=== PATIENT | female | born 1985 | race Caucasian/White ===

== ENCOUNTER 2017-02-01 22:29 | Emergency (ER) | payer BC ==
[2017-02-01] MEDS ORDERED: methylPREDNISolone Sodium Succinate 125 MG/2 ML SDV IM ONE (22:44)
[2017-02-01 22:45] VITALS: BP 144/98
--- NOTE | 2017-02-01 23:16 | EDM.PDOC ---
[id number]: allergic reaction Time Seen by Provider: 02/01/17 22:45 Source of Information: Reports: Patient, Family History Limitations: Reports: No Limitations - History of Present Illness INITIAL COMMENTS - FREE TEXT/NARRATIVE: 31-year-old female who is allergic to several medications and environmental allergies over the past hour and a half to 2 hours feels her throat is scratchy and swollen and she's having trouble breathing. She also feels she's itching all over. She was exposed to some water filter cleaner chemicals earlier this evening. She took 4 Benadryl within the last hour. Severity: Mild Associated Symptoms: Reports: Shortness of Breath. Denies: Cough, Fever/Chills , Headaches, Nausea/Vomiting - Related Data Allergies Allergy/AdvReac Type Severity Reaction Status Date / Time codeine Allergy Cannot Verified 02/01/17 22:46 Remember hydrocodone [Hydrocodone] Allergy Itching Verified 02/01/17 22:46 Iodinated Contrast- Oral and Allergy Hives Verified 02/01/17 22:46 IV Dye [Iodinated Contrast Media - IV Dye] iodine Allergy Hives Verified 02/01/17 22:46 metoclopramide HCl Allergy Itching Verified 02/01/17 22:46 [From Reglan] povidone-iodine Allergy Hives Verified 02/01/17 22:46 [From Betadine] promethazine HCl Allergy Itching Verified 02/01/17 22:46 [From Phenergan] shellfish derived Allergy Hives Verified 02/01/17 22:46 soap [From Betadine] Allergy Hives Verified 02/01/17 22:46 acetaminophen AdvReac Liver Verified 02/01/17 22:46 Problems azithromycin AdvReac Liver Verified 02/01/17 22:46 [From Zithromax Z-Bulmaro] Problems droperidol [From Inapsine] AdvReac Confusion Verified 02/01/17 22:46 prochlorperazine edisylate AdvReac Confusion Verified 02/01/17 22:46 [From Compazine] prochlorperazine maleate AdvReac Confusion Verified 02/01/17 22:46 [From Compazine] Home Meds: Home Meds Multivitamin [Multi-Vitamin Daily] 1 each PO BEDTIME 08/03/15 [History] ALPRAZolam [Alprazolam] 1 mg PO ASDIRECTED PRN 02/01/17 [History] Prazosin HCl [Prazosin] 2 mg PO BEDTIME 02/01/17 [History] busPIRone HCl [busPIRone] 30 mg PO BID 02/01/17 [History] traZODone HCl [Trazodone HCl] 50 mg PO BEDTIME 02/01/17 [History] Past Medical History Gastrointestinal History: Reports: Cholelithiasis Neurological History: Reports: Migraines Psychiatric History: Reports: Anxiety, Depression Endocrine/Metabolic History: Reports: Obesity/BMI 30+ - Past Surgical History HEENT Surgical History: Reports: Tonsillectomy GI Surgical History: Reports: Cholecystectomy, David Fundoplication Musculoskeletal Surgical History: Reports: Other (See Below) Other Musculoskeletal Surgeries/Procedures:: right hip Social & Family History - Tobacco Use Smoking Status *Q: Never Smoker Second Hand Smoke Exposure: No - Caffeine Use Caffeine Use: Reports: Soda - Alcohol Use Days Per Week of Alcohol Use: 0 - Recreational Drug Use Recreational Drug Use: No ED ROS ALLERGIC REACTION - Review of Systems Review Of Systems: See Below Constitutional: Denies: Fever, Chills HEENT: Reports: Throat Swelling Respiratory: Reports: Shortness of Breath. Denies: Cough Cardiovascular: Denies: Chest Pain GI/Abdominal: Denies: Abdominal Pain Musculoskeletal: Reports: No Symptoms Skin: Reports: Pruritis. Denies: Rash Neurological: Reports: No Symptoms ED EXAM GENERAL NO PERIP PULSE - Physical Exam Exam: See Below Exam Limited By: No Limitations General Appearance: Alert, No Apparent Distress Eye Exam: Bilateral Eye: Normal Inspection Throat/Mouth: Normal Inspection Respiratory/Chest: No Respiratory Distress, Lungs Clear Neurological: Alert, Oriented Psychiatric: Normal Affect, Normal Mood Skin Exam: Warm, Dry, No Rash Course - Vital Signs Last Recorded V/S: Last Vital Signs Temp 98.4 F 02/01/17 22:38 Pulse 85 02/01/17 22:38 Resp 16 02/01/17 22:38 BP 144/98 H 02/01/17 22:38 Pulse Ox 98 02/01/17 22:38 - Orders/Labs/Meds Meds: Medications Discontinued Medications Generic Name Dose Route Start Last Admin Trade Name Freq PRN Reason Stop Dose Admin Methylprednisolone Sodium Succinate 125 mg 02/01/17 22:44 02/01/17 22:54 Solu-Medrol IM 02/01/17 22:45 125 mg ONETIME ONE Administration - Re-Assessments/Exams Free Text/Narrative Re-Assessment/Exam: 02/01/17 23:13 Explained to the patient that I see no physical findings of an allergic reaction. Her tonsils are gone, there is no mucosal erythema or swelling, her lungs are clear and her O2 sats are 97-98%. Despite the itchy skin she has no rash. She was given 125 mg of Solu-Medrol IM and observed for half hour and developed no further symptoms. 02/01/17 23:15 Primary to discharge the patient started talking normally and said the itching had "stopped". Departure - Departure Time of Disposition: 23:42 Disposition: Home, Self-Care 01 Condition: Good Clinical Impression: Allergic reaction Qualifiers: Encounter type: initial encounter Qualified Code(s): T78.40XA - Allergy, unspecified, initial encounter - Discharge Information Instructions: Allergies Referrals: Annabella Fofana PA [Primary Care Provider] - Forms: ED Department Discharge Care Plan Goals: Rest tonight, repeat Benadryl as necessary and return if worsening or concerns.
== END 2017-02-01 23:42 | disposition home or self-care (01) ==
LOC: JP.ED 22:29
DX: T78.40XA Allergy, unspecified, initial encounter (principal); R22.1 Localized swelling, mass and lump, neck; R06.02 Shortness of breath; F41.9 Anxiety disorder, unspecified; F32.9 Major depressive disorder, single episode, unspecified; E66.9 Obesity, unspecified; Z88.1 Allergy status to other antibiotic agents; Z88.5 Allergy status to narcotic agent; Z88.8 Allergy status to other drugs, medicaments and biological substances; Z91.041 Radiographic dye allergy status; Z91.013 Allergy to seafood; Z91.048 Other nonmedicinal substance allergy status; Z90.49 Acquired absence of other specified parts of digestive tract; Z98.890 Other specified postprocedural states
CPT/HCPCS: 96372; 99285; J2930

== ENCOUNTER 2017-04-10 18:05 | Emergency (ER) | payer BC ==
[2017-04-10 18:16] VITALS: BP 149/98
--- NOTE | 2017-04-10 18:51 | EDM.PDOC ---
ED HPI GENERAL MEDICAL PROBLEM - General Chief Complaint: [employer] Problem Stated Complaint: 4 WEEKS PG - SPOTTING Time Seen by Provider: 04/10/17 18:40 Source of Information: Reports: Patient History Limitations: Reports: No Limitations - History of Present Illness INITIAL COMMENTS - FREE TEXT/NARRATIVE: 31-year-old female with a very early , she thinks she is around 4 weeks gestation had some spotting today and some slight cramping. She went to the clinic and they sent her to the emergency room. She is very stable and not actively bleeding at this time. Onset: Today Severity: Mild Middle Abdomen Pain Score (Numeric/FACES): 3 - Related Data Allergies Allergy/AdvReac Type Severity Reaction Status Date / Time codeine Allergy Cannot Verified 02/01/17 22:46 Remember hydrocodone [Hydrocodone] Allergy Itching Verified 02/01/17 22:46 Iodinated Contrast- Oral and Allergy Hives Verified 02/01/17 22:46 IV Dye [Iodinated Contrast Media - IV Dye] iodine Allergy Hives Verified 04/10/17 18:22 metoclopramide HCl Allergy Itching Verified 04/10/17 18:22 [From Reglan] povidone-iodine Allergy Hives Verified 04/10/17 18:22 [From Betadine] promethazine HCl Allergy Itching Verified 04/10/17 18:22 [From Phenergan] shellfish derived Allergy Hives Verified 04/10/17 18:22 soap [From Betadine] Allergy Hives Verified 04/10/17 18:22 acetaminophen AdvReac Liver Verified 04/10/17 18:22 Problems azithromycin AdvReac Liver Verified 04/10/17 18:22 [From Zithromax Z-Bulmaro] Problems droperidol [From Inapsine] AdvReac Confusion Verified 04/10/17 18:22 prochlorperazine edisylate AdvReac Confusion Verified 04/10/17 18:22 [From Compazine] prochlorperazine maleate AdvReac Confusion Verified 02/01/17 22:46 [From Compazine] Home Meds: Home Meds Multivitamin [Multi-Vitamin Daily] 1 each PO BEDTIME 08/03/15 [History] ALPRAZolam [Alprazolam] 1 mg PO ASDIRECTED PRN 02/01/17 [History] Prazosin HCl [Prazosin] 2 mg PO BEDTIME 02/01/17 [History] busPIRone HCl [busPIRone] 30 mg PO BID 02/01/17 [History] traZODone HCl [Trazodone HCl] 50 mg PO BEDTIME 02/01/17 [History] Past Medical History Gastrointestinal History: Reports: Cholelithiasis [employer] History: Reports: , Spontaneous Neurological History: Reports: Migraines Psychiatric History: Reports: Anxiety, Depression Endocrine/Metabolic History: Reports: Obesity/BMI 30+ - Past Surgical History HEENT Surgical History: Reports: Tonsillectomy GI Surgical History: Reports: Cholecystectomy, David Fundoplication Musculoskeletal Surgical History: Reports: Other (See Below) Other Musculoskeletal Surgeries/Procedures:: right hip Social & Family History - Tobacco Use Smoking Status *Q: Never Smoker Second Hand Smoke Exposure: No - Caffeine Use Caffeine Use: Reports: Soda Other Caffeine Use: 1 can - Alcohol Use Days Per Week of Alcohol Use: 0 - Recreational Drug Use Recreational Drug Use: No ED ROS GENERAL - Review of Systems Review Of Systems: See Below Constitutional: Denies: Fever, Chills Respiratory: Reports: No Symptoms GI/Abdominal: Reports: Nausea (She always has nausea in her earlier pregnancies) Skin: Reports: No Symptoms ED EXAM - Physical Exam Exam: See Below Exam Limited By: No Limitations General Appearance: Alert, No Apparent Distress Respiratory/Chest: No Respiratory Distress Cardiovascular: Regular Rate, Rhythm GI/Abdominal Exam: Soft, Non-Tender Course - Vital Signs Last Recorded V/S: Last Vital Signs Temp 97.7 F 04/10/17 18:15 Pulse 108 H 04/10/17 18:15 Resp 16 04/10/17 18:15 BP 149/98 H 04/10/17 18:15 Pulse Ox 98 04/10/17 18:15 - Orders/Labs/Meds Labs: Laboratory Tests 04/10/17 04/10/17 Range/Units 18:48 18:48 WBC 12.3 H (4.5-11.0) K/uL RBC 4.79 (3.30-5.50) M/uL Hgb 12.3 D (12.0-15.0) g/dL Hct 37.8 (36.0-48.0) % MCV 79 L (80-98) fL MCH 26 L (27-31) pg MCHC 33 (32-36) % Plt Count 413 H (150-400) K/uL Neut % (Auto) 76 H (36-66) % Lymph % (Auto) 17 L (24-44) % [place] % (Auto) 6 (2-6) % Eos % (Auto) 2 (2-4) % Baso % (Auto) 0 (0-1) % HCG, Quant 617 H (0-6) mIU/mL - Re-Assessments/Exams Free Text/Narrative Re-Assessment/Exam: 04/10/17 18:50 Explained to the patient she so early that an exam really isn't necessary, we will draw a quantitative beta hCG and CBC which can be repeated in 48 hours. 04/10/17 19:28 Hemoglobin returned normal, quantitative hCG was only 617. I would expect it to be higher, but it still may be worthwhile rechecking in 2 days. If she develops increased bleeding and cramping I would expect she could treat this conservatively as a miscarriage. Departure - Departure Time of Disposition: 19:38 Disposition: Home, Self-Care 01 Condition: Good Clinical Impression: Threatened - Discharge Information Instructions: Threatened Miscarriage Referrals: Annabella Fofana PA [Primary Care Provider] - Forms: ED Department Discharge Care Plan Goals: Rest and fluids the next several days, return in 48 hours for repeat exam of your beta hCG level unless bleeding and cramping becomes heavier, then it would be reasonable to just treat symptoms as needed.
== END 2017-04-10 19:38 | disposition home or self-care (01) ==
LOC: JP.ED 18:05
DX: O20.0 Threatened abortion (principal); Z79.899 Other long term (current) drug therapy; Z88.1 Allergy status to other antibiotic agents; Z91.013 Allergy to seafood; Z88.5 Allergy status to narcotic agent; Z91.041 Radiographic dye allergy status; Z91.09 Other allergy status, other than to drugs and biological substances
CPT/HCPCS: 36415; 84702; 85025; 99284

== ENCOUNTER 2017-08-03 16:39 | Observation (INO) | payer BC, OTHER ==
[2017-08-03] MEDS ORDERED: Sodium Chloride 0.9% 1,000 ML IV SCH ×2 (16:45→19:45)
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
[2017-08-03] MEDS ORDERED: Bacitracin Oint 1 GM U/D Packet TOP ONE (18:19)
[2017-08-03] MEDS ORDERED: hydrOXYzine HCl 25 MG Tab PO ONE (19:54)
[2017-08-03 20:48] VITALS: BP 129/79
--- NOTE | 2017-08-06 10:20 | CR ---
Left forearm The radius and ulna demonstrate normal alignment. There are no findings of fracture. The soft tissues are unremarkable. Impression: 1. Negative exam.
== END 2017-08-03 21:10 | disposition home or self-care (01) ==
LOC: JP.ED 16:39 → JP.OB 18:16
PROVIDERS: ADMIT Advanced Practice Midwife; ATTEND Advanced Practice Midwife
DX: O9A.212 Injury, poisoning and certain other consequences of external causes complicating pregnancy, second trimester (principal); S40.812A Abrasion of left upper arm, initial encounter; E66.9 Obesity, unspecified; O99.212 Obesity complicating pregnancy, second trimester; V89.2XXA Person injured in unspecified motor-vehicle accident, traffic, initial encounter; Z3A.21 21 weeks gestation of pregnancy; Z88.5 Allergy status to narcotic agent; Z91.041 Radiographic dye allergy status; Z88.8 Allergy status to other drugs, medicaments and biological substances; Z91.09 Other allergy status, other than to drugs and biological substances; Z91.013 Allergy to seafood; Z88.1 Allergy status to other antibiotic agents; Z88.6 Allergy status to analgesic agent; Z68.30 Body mass index [BMI] 30.0-30.9, adult; Z90.89 Acquired absence of other organs; Z98.890 Other specified postprocedural states
CPT/HCPCS: 36415; 73090; 76815; 80053; 81001; 85025; 99211; 99285; A9270; J1642; J7040

== ENCOUNTER 2017-11-30 21:59 | Emergency (ER) | payer BC ==
[2017-11-30 23:08] VITALS: BP 153/102
[2017-11-30] MEDS ORDERED: oxyCODONE 5 MG Tab PO ONE (23:21)
--- NOTE | 2017-11-30 23:25 | EDM.PDOC ---
ED HPI GENERAL MEDICAL PROBLEM - General Chief Complaint: ENT Problem Stated Complaint: THROAT INFECTION/DEHYDRATED Time Seen by Provider: 11/30/17 23:15 Source of Information: Reports: Patient History Limitations: Reports: No Limitations - History of Present Illness INITIAL COMMENTS - FREE TEXT/NARRATIVE: Melany a 32-year-old female, G4 para 3003 who presents to the emergency department today with complaints of dehydration. Patient has issues with hyperemesis, she is 38 weeks , she has a PICC line in her right arm. Patient was seen in the clinic earlier today with a throat infection, she tested negative for strep has large amounts exudates and canker sores in the back of her throat, she was started on Amoxicillin. Patient has been taking Tylenol for pain with minimal relief in her symptoms. throat Pain Score (Numeric/FACES): 10 - Related Data Allergies Allergy/AdvReac Type Severity Reaction Status Date / Time codeine Allergy Cannot Verified 12/01/17 00:31 Remember hydrocodone [Hydrocodone] Allergy Itching Verified 12/01/17 00:31 Iodinated Contrast- Oral and Allergy Hives Verified 12/01/17 00:31 IV Dye [Iodinated Contrast Media - IV Dye] iodine Allergy Hives Verified 12/01/17 00:31 metoclopramide HCl Allergy Itching Verified 12/01/17 00:31 [From Reglan] povidone-iodine Allergy Hives Verified 12/01/17 00:31 [From Betadine] promethazine HCl Allergy Itching Verified 12/01/17 00:31 [From Phenergan] shellfish derived Allergy Hives Verified 12/01/17 00:31 soap [From Betadine] Allergy Hives Verified 12/01/17 00:31 acetaminophen AdvReac Liver Verified 12/01/17 00:31 Problems azithromycin AdvReac Liver Verified 12/01/17 00:31 [From Zithromax Z-Bulmaro] Problems droperidol [From Inapsine] AdvReac Confusion Verified 12/01/17 00:31 prochlorperazine edisylate AdvReac Confusion Verified 12/01/17 00:31 [From Compazine] prochlorperazine maleate AdvReac Confusion Verified 12/01/17 00:31 [From Compazine] Home Meds: Home Meds Multivitamin [Multi-Vitamin Daily] 1 each PO BEDTIME 08/03/15 [History] Ondansetron [Ondansetron ODT] 8 mg PO Q8H PRN 08/03/17 [History] Past Medical History Gastrointestinal History: Reports: Cholelithiasis [employer] History: Reports: , Spontaneous Neurological History: Reports: Migraines Psychiatric History: Reports: Anxiety, Depression Endocrine/Metabolic History: Reports: Obesity/BMI 30+ - Past Surgical History HEENT Surgical History: Reports: Tonsillectomy GI Surgical History: Reports: Cholecystectomy, David Fundoplication Musculoskeletal Surgical History: Reports: Other (See Below) Other Musculoskeletal Surgeries/Procedures:: right hip Social & Family History - Caffeine Use Caffeine Use: Reports: Soda Other Caffeine Use: 1 can ED ROS ENT - Review of Systems Review Of Systems: ROS reveals no pertinent complaints other than HPI. ED EXAM, ENT - Physical Exam Exam: See Below Exam Limited By: No Limitations General Appearance: Alert, WD/WN, No Apparent Distress Mouth/Throat: Tonsillar Exudates, Tonsillar Swelling, Other (I well but it is probably not beLarge amounts of exudative tonsillar pillars and uvula.). No: Tongue Swelling, Trismus, Uvular Deviation, Uvular Edema Head: Atraumatic Neck: Normal Inspection, Supple. No: Lymphadenopathy (R), Lymphadenopathy (L) Respiratory/Chest: No Respiratory Distress, Lungs Clear Cardiovascular: Regular Rate, Rhythm GI/Abdominal: Normal Bowel Sounds, Soft, Non-Tender Extremities: Normal Inspection Skin: Warm, Dry, Intact Course - Vital Signs Last Recorded V/S: Last Vital Signs Temp 36.9 C 12/01/17 00:47 Pulse 121 H 12/01/17 00:47 Resp 16 12/01/17 00:47 BP 153/102 H 12/01/17 00:47 Pulse Ox 98 12/01/17 00:47 Lauren is a 32-year-old female, 3 weeks , G4 para 3003 who presents to the emergent for dehydration secondary to her sore throat was evaluated earlier today in clinic. Please refer to history of present illness and focused exam. Patient arrives here hypertensive and tachycardic but is otherwise hemodynamically stable. I did discuss with patient pain control for her sore throat, she did agree to oxycodone, one dose, she was given a liter of normal saline here as well as IV Zofran. Patient reports she is feeling a little lightheaded from the oxycodone but is otherwise feeling better and her pain has improved. At this time I feel patient is stable to be discharged home with ongoing supportive care. Patient was encouraged to take Tylenol as needed, amoxicillin as prescribed. Follow up as scheduled. Patient agreeable and discharged in stable condition. Heart rate and blood pressure improved to 110 and 140/80 - Orders/Labs/Meds Orders: Active Orders 24 hr Category Date Time Status Heparin Sodium [Heparin Lock Flush 100 Units/ML] Med 12/01/17 01:23 Active 500 units FLUSH ASDIRECTED PRN Sodium Chloride 0.9% [Normal Saline] 1,000 ml Med 11/30/17 23:30 Active IV ASDIRECTED Medication Orders Heparin Sodium (Porcine) (Heparin Lock Flush 100 Units/Ml) 500 units FLUSH ASDIRECTED PRN PRN Reason: Other Sodium Chloride (Normal Saline) 1,000 mls @ 999 mls/hr IV ASDIRECTED BALTA Last Admin: 12/01/17 00:36 Dose: 999 mls/hr Meds: Medications Generic Name Dose Route Start Last Admin Trade Name Freq PRN Reason Stop Dose Admin Heparin Sodium (Porcine) 500 units 12/01/17 01:23 Heparin Lock Flush 100 Units/Ml FLUSH ASDIRECTED PRN Other Sodium Chloride 1,000 mls @ 999 mls/hr 11/30/17 23:30 12/01/17 00:36 Normal Saline IV 999 mls/hr ASDIRECTED BALTA Administration Discontinued Medications Generic Name Dose Route Start Last Admin Trade Name Freq PRN Reason Stop Dose Admin Ondansetron HCl 4 mg 12/01/17 00:17 12/01/17 00:36 Zofran IVPUSH 12/01/17 00:18 4 mg ONETIME ONE Administration Oxycodone HCl 10 mg 11/30/17 23:21 12/01/17 00:39 Oxycodone PO 11/30/17 23:22 10 mg ONETIME ONE Administration Departure - Departure Time of Disposition: 02:00 Disposition: Home, Self-Care 01 Condition: Good Clinical Impression: Acute sore throat, Dehydration during - Discharge Information Referrals: Annabella Fofana PA [Primary Care Provider] - Forms: ED Department Discharge Additional Instructions: Take Amoxicillin as prescribed. Tylenol as needed for pain. Follow up with primary care as scheduled. - My Orders Last 24 Hours: My Active Orders 11/30/17 23:30 Sodium Chloride 0.9% [Normal Saline] 1,000 ml IV ASDIRECTED 12/01/17 01:23 Heparin Sodium [Heparin Lock Flush 100 Units/ML] 500 units FLUSH ASDIRECTED PRN - Assessment/Plan Last 24 Hours: My Active Orders 11/30/17 23:30 Sodium Chloride 0.9% [Normal Saline] 1,000 ml IV ASDIRECTED 12/01/17 01:23 Heparin Sodium [Heparin Lock Flush 100 Units/ML] 500 units FLUSH ASDIRECTED PRN
[2017-11-30] MEDS ORDERED: Sodium Chloride 0.9% 1,000 ML IV SCH (23:30)
[2017-12-01] MEDS ORDERED: Ondansetron 4 MG/2 ML SDV IVPUSH ONE (00:17)
== END 2017-12-01 01:49 | disposition home or self-care (01) ==
LOC: JP.ED 21:59
DX: O99.283 Endocrine, nutritional and metabolic diseases complicating pregnancy, third trimester (principal); E86.0 Dehydration; O99.513 Diseases of the respiratory system complicating pregnancy, third trimester; J02.9 Acute pharyngitis, unspecified; O99.343 Other mental disorders complicating pregnancy, third trimester; F41.9 Anxiety disorder, unspecified; F32.9 Major depressive disorder, single episode, unspecified; Z3A.38 38 weeks gestation of pregnancy; Z88.5 Allergy status to narcotic agent; Z91.041 Radiographic dye allergy status; Z79.899 Other long term (current) drug therapy
CPT/HCPCS: 96361; 96374; 99283; A9270; J1642; J2405; J7030

== ENCOUNTER 2017-12-06 20:20 | Inpatient (IN) | payer BC ==
[2017-12-06] MEDS ORDERED: Ampicillin 2 GM in Sodium Chloride 0.9% 100 ML IV ONE (20:44)
[2017-12-06] MEDS ORDERED: Sodium Chloride 0.9% 1,000 ML IV SCH (20:45)
[2017-12-06] MEDS ORDERED: Sodium Chloride 0.9% 10 ML Syringe FLUSH PRN (21:49)
--- NOTE | 2017-12-06 21:57 | PCM.LDHP ---
L&D History of Present Illness - General Date of Service: 12/06/17 Admit Problem/Dx: Patient Status Order with Admit Dx/Problem 12/06/17 20:50 Patient Status [ADT] Routine Admission Diagnosis/Problem Admission Diagnosis/Problem - Related Data Allergies/Adverse Reactions: Allergies Allergy/AdvReac Type Severity Reaction Status Date / Time codeine Allergy Cannot Verified 12/06/17 20:44 Remember hydrocodone [Hydrocodone] Allergy Itching Verified 12/06/17 20:44 Iodinated Contrast- Oral and Allergy Hives Verified 12/06/17 20:44 IV Dye [Iodinated Contrast Media - IV Dye] iodine Allergy Hives Verified 12/06/17 20:44 metoclopramide HCl Allergy Itching Verified 12/06/17 20:44 [From Reglan] povidone-iodine Allergy Hives Verified 12/06/17 20:44 [From Betadine] promethazine HCl Allergy Itching Verified 12/06/17 20:44 [From Phenergan] shellfish derived Allergy Hives Verified 12/06/17 20:44 soap [From Betadine] Allergy Hives Verified 12/06/17 20:44 acetaminophen AdvReac Liver Verified 12/06/17 20:44 Problems azithromycin AdvReac Liver Verified 12/06/17 20:44 [From Zithromax Z-Bulmaro] Problems droperidol [From Inapsine] AdvReac Confusion Verified 12/06/17 20:44 prochlorperazine edisylate AdvReac Confusion Verified 12/06/17 20:44 [From Compazine] prochlorperazine maleate AdvReac Confusion Verified 12/06/17 20:44 [From Compazine] Home Medications: Home Meds Multivitamin [Multi-Vitamin Daily] 1 each PO BEDTIME 08/03/15 [History] Ondansetron [Ondansetron ODT] 8 mg PO Q8H PRN 08/03/17 [History] Past Medical History Gastrointestinal History: Reports: Cholelithiasis Genitourinary History: Reports: Renal Calculus [employer] History: Reports: , Spontaneous Neurological History: Reports: Migraines Psychiatric History: Reports: Anxiety, Depression Endocrine/Metabolic History: Reports: Obesity/BMI 30+ - Infectious Disease History Infectious Disease History: Reports: Chicken Pox - Past Surgical History HEENT Surgical History: Reports: Tonsillectomy GI Surgical History: Reports: Cholecystectomy, David Fundoplication Musculoskeletal Surgical History: Reports: Other (See Below) Other Musculoskeletal Surgeries/Procedures:: right hip Social & Family History - Caffeine Use Caffeine Use: Reports: Soda Other Caffeine Use: 1 can H&P Review of Systems - Review of Systems: Review Of Systems: See Below General: Reports: No Symptoms HEENT: Reports: No Symptoms Pulmonary: Reports: No Symptoms Cardiovascular: Reports: No Symptoms Gastrointestinal: Reports: No Symptoms Genitourinary: Reports: No Symptoms Musculoskeletal: Reports: No Symptoms Skin: Reports: No Symptoms Psychiatric: Reports: No Symptoms Neurological: Reports: No Symptoms Hematologic/Lymphatic: Reports: No Symptoms Immunologic: Reports: No Symptoms L&D Exam - Exam Exam: See Below - Exam General: Alert, Oriented HEENT: PERRLA, Conjunctiva Clear, EACs Clear, EOMI, Hearing Intact, Mucosa Moist & [place], Nares Patent, Normal Nasal Septum, Posterior Pharynx Clear, TMs Clear Neck: Supple, Trachea Midline Lungs: Clear to Auscultation, Normal Respiratory Effort Cardiovascular: Regular Rate, Regular Rhythm GI/Abdominal Exam: Normal Bowel Sounds, Soft, Non-Tender, No Organomegaly, No Distention, No Abnormal Bruit, No Mass, Pelvis Stable Rectal Exam: Normal Exam, Normal Rectal Tone Genitourinary: Normal external exam, Normal bimanual exam, Normal speculum exam , Cervical dilitation Back Exam: Normal Inspection, Full Range of Motion Extremities: Normal Inspection, Normal Range of Motion, Non-Tender, No Pedal Edema, Normal Capillary Refill Skin: Warm, Dry, Intact Neurological: Cranial Nerves Intact, Reflexes Equal Bilateral Psychiatric: Alert, Normal Affect, Normal Mood - Patient Data Lab Results Last 24 hrs: Laboratory Results - last 24 hr 12/06/17 12/06/17 12/06/17 Range/Units 20:42 20:42 20:52 WBC 13.8 H (4.5-11.0) K/uL RBC 4.85 (3.30-5.50) M/uL Hgb 10.6 L (12.0-15.0) g/dL Hct 33.5 L (36.0-48.0) % MCV 69 L (80-98) fL MCH 22 L (27-31) pg MCHC 32 (32-36) % Plt Count 343 (150-400) K/uL Neut % (Auto) 77 H (36-66) % Lymph % (Auto) 14 L (24-44) % [place] % (Auto) 8 H (2-6) % Eos % (Auto) 1 L (2-4) % Baso % (Auto) 0 (0-1) % Urine Color Yellow Urine Appearance Slightly cloudy Urine pH 7.0 (4.5-8.0) Ur Specific [place] 1.015 (1.008-1.030) Urine Protein Negative (NEGATIVE) mg/dL Urine Glucose (UA) Normal (NEGATIVE) mg/dL Urine Ketones Negative (NEGATIVE) mg/dL Urine Occult Blood Moderate (NEGATIVE) Urine Nitrite Negative (NEGATIVE) Urine Bilirubin Negative (NEGATIVE) Urine Urobilinogen Normal (NORMAL) mg/dL Ur Leukocyte Esterase Large (NEGATIVE) Urine RBC 0-5 (0-5) Urine WBC 10-20 H (0-5) Ur Epithelial Cells Many Amorphous Sediment Rare Urine Bacteria Not seen Urine Mucus Rare Urine Opiates Screen Presumptive positive H (NEGATIVE) Ur Oxycodone Screen Negative (NEGATIVE) Urine Methadone Screen Negative (NEGATIVE) Ur Propoxyphene Screen Negative (NEGATIVE) Ur Barbiturates Screen Negative (NEGATIVE) Ur Tricyclics Screen Negative (NEGATIVE) Ur Phencyclidine Scrn Negative (NEGATIVE) Ur Amphetamine Screen Negative (NEGATIVE) U Methamphetamines Scrn Presumptive positive H (NEGATIVE) Urine MDMA Screen Negative (NEGATIVE) U Benzodiazepines Scrn Negative (NEGATIVE) U Cocaine Metab Screen Negative (NEGATIVE) U Marijuana (THC) Screen Negative (NEGATIVE) Result Diagrams: 12/06/17 20:52 - Problem List (1) SNOMED Code(s): 60561600 ICD Code: Z34.90 - ENCNTR FOR SUPRVSN OF NORMAL , UNSP, UNSP TRIMESTER Status: Acute Current Visit: Yes Qualifiers: Weeks of gestation: 38 weeks Qualified Code(s): Z3A.38 - 38 weeks gestation of (2) GBS carrier SNOMED Code(s): 3707763445205 ICD Code: Z22.330 - CARRIER OF GROUP B STREPTOCOCCUS Status: Acute Current Visit: Yes (3) Normal vaginal delivery SNOMED Code(s): 07192324 ICD Code: O80 - ENCOUNTER FOR FULL-TERM UNCOMPLICATED DELIVERY Status: Acute Current Visit: Yes (4) Precipitous delivery SNOMED Code(s): 830275552 ICD Code: O62.3 - PRECIPITATE LABOR Status: Acute Current Visit: Yes (5) Hyperemesis SNOMED Code(s): 599422116 ICD Code: R11.10 - VOMITING, UNSPECIFIED Status: Acute Current Visit: Yes Problem List Initiated/Reviewed/Updated: Yes Orders Last 24hrs: Active Orders 24 hr Category Date Time Status Patient Status [ADT] Routine ADT 12/06/17 20:50 Ordered Ambulate [RC] PER UNIT ROUTINE Care 12/06/17 21:49 Ordered Communication Order [RC] ASDIRECTED Care 12/06/17 21:49 Ordered Heart Tones [RC] PER UNIT ROUTINE Care 12/06/17 21:49 Ordered Notify Provider Vital Signs [RC] PRN Care 12/06/17 20:50 Ordered Notify Provider [RC] PRN Care 12/06/17 21:49 Ordered OB Check [OM.PC] Click to Edit Care 12/06/17 20:41 Ordered VTE/DVT Education [RC] Click to Edit Care 12/06/17 21:51 Ordered Vital Signs [RC] PER UNIT ROUTINE Care 12/06/17 21:49 Ordered CBC WITH AUTO DIFF [HEME] Routine Lab 12/06/17 21:49 Ordered DRUG SCREEN, URINE [URCHEM] Stat Lab 12/06/17 20:42 Ordered UA W/MICROSCOPIC [URIN] Routine Lab 12/06/17 20:42 Ordered Oxytocin/Normal Saline [Pitocin in NS 20 Units/1,000 ML Med 12/06/17 21:00 Active ] 20 unit in 1,000 ml IV TITRATE Sodium Chloride 0.9% [Normal Saline] 1,000 ml Med 12/06/17 20:45 Active IV ASDIRECTED Sodium Chloride 0.9% [Saline Flush] Med 12/06/17 21:49 Ordered 10 ml FLUSH ASDIRECTED PRN DVT/VTE Prophylaxis Reflex [OM.PC] Routine Oth 12/06/17 21:49 Ordered Saline Lock Insert [OM.PC] Routine Oth 12/06/17 21:49 Ordered Resuscitation Status Routine Resus Stat 12/06/17 21:49 Ordered Medication Orders Sodium Chloride (Normal Saline) 1,000 mls @ 125 mls/hr IV ASDIRECTED BALTA Oxytocin/Sodium Chloride (Pitocin In Ns 20 Units/1,000 Ml) 20 unit in 1,000 mls @ 999 mls/hr IV TITRATE BALTA; Protocol Assessment/Plan Comment:: 12/06/2017 32 yo came in in spontaneous labor and delivered precipitously see labor delivery note. SVE on admit /bulging bag Ramin regular FHTs category one History of hyperemesis GBS positive Plan- Monitor labor Monitor FHTS Plan and anticipate a vaginal delivery
--- NOTE | 2017-12-06 22:03 | PCM.DEL ---
L & D Note - General Info Date of Service: 12/06/17 Mother's Due Date: 12/14/17 - Delivery Note Labor: Spontaneous Delivery Outcome: Livebirth Infant Delivery Method: Spontaneous Vaginal Delivery-Single Delivery Mode: Spontaneous Presentation: Left Occiput Anterior (KIERA) Nuchal Cord: Present (somersaulted through cord during quick delivery-true knot noted) Anesthesia Type: None Episiotomy Type: None Laceration: None Placenta: Intact, Spontaneous Cord: 3 Vessels, True Knot Resuscitation Needed: No : Bulb Syringe, Stimulated, Warmed, [place] Used Score 1 min: 9 Score 5 min: 9 Delivery Comments (Free Text/Narrative):: 12/06/2017 32 yo at 38 6/7 gestational weeks delivered a viable female infant at 2103 on 12/06/2017 in the KIERA position normal spontaneous vaginal delivery over an intact perineum. APGARS-9/9, weight 6lbs 12oz, length-19.1 inches, had tight nuchal cord, somersaulted through cord due to precipitous delivery, true knot noted, three vessel cord. Infant bulb suctioned, stimulated, warmed, and dried. Placenta spontaneous and intact, mec stained. No lacerations noted of vagina, perineum, cervix, perineum, or rectum. EBL-300ml. Mother and stable in labor and delivery room. - General Info Date of Service: 12/06/17 Functional Status: Reports: Pain Controlled - Review of Systems General: Reports: No Symptoms HEENT: Reports: No Symptoms Pulmonary: Reports: No Symptoms Cardiovascular: Reports: No Symptoms Gastrointestinal: Reports: No Symptoms Genitourinary: Reports: No Symptoms Musculoskeletal: Reports: No Symptoms Skin: Reports: No Symptoms Neurological: Reports: No Symptoms Psychiatric: Reports: No Symptoms - Patient Data Lab Results Last 24 Hours: Laboratory Results - last 24 hr 12/06/17 12/06/17 12/06/17 Range/Units 20:42 20:42 20:52 WBC 13.8 H (4.5-11.0) K/uL RBC 4.85 (3.30-5.50) M/uL Hgb 10.6 L (12.0-15.0) g/dL Hct 33.5 L (36.0-48.0) % MCV 69 L (80-98) fL MCH 22 L (27-31) pg MCHC 32 (32-36) % Plt Count 343 (150-400) K/uL Neut % (Auto) 77 H (36-66) % Lymph % (Auto) 14 L (24-44) % [place] % (Auto) 8 H (2-6) % Eos % (Auto) 1 L (2-4) % Baso % (Auto) 0 (0-1) % Urine Color Yellow Urine Appearance Slightly cloudy Urine pH 7.0 (4.5-8.0) Ur Specific [place] 1.015 (1.008-1.030) Urine Protein Negative (NEGATIVE) mg/dL Urine Glucose (UA) Normal (NEGATIVE) mg/dL Urine Ketones Negative (NEGATIVE) mg/dL Urine Occult Blood Moderate (NEGATIVE) Urine Nitrite Negative (NEGATIVE) Urine Bilirubin Negative (NEGATIVE) Urine Urobilinogen Normal (NORMAL) mg/dL Ur Leukocyte Esterase Large (NEGATIVE) Urine RBC 0-5 (0-5) Urine WBC 10-20 H (0-5) Ur Epithelial Cells Many Amorphous Sediment Rare Urine Bacteria Not seen Urine Mucus Rare Urine Opiates Screen Presumptive positive H (NEGATIVE) Ur Oxycodone Screen Negative (NEGATIVE) Urine Methadone Screen Negative (NEGATIVE) Ur Propoxyphene Screen Negative (NEGATIVE) Ur Barbiturates Screen Negative (NEGATIVE) Ur Tricyclics Screen Negative (NEGATIVE) Ur Phencyclidine Scrn Negative (NEGATIVE) Ur Amphetamine Screen Negative (NEGATIVE) U Methamphetamines Scrn Presumptive positive H (NEGATIVE) Urine MDMA Screen Negative (NEGATIVE) U Benzodiazepines Scrn Negative (NEGATIVE) U Cocaine Metab Screen Negative (NEGATIVE) U Marijuana (THC) Screen Negative (NEGATIVE) Med Orders - Current: Current Medications Sodium Chloride (Normal Saline) 1,000 mls @ 125 mls/hr IV ASDIRECTED BALTA Oxytocin/Sodium Chloride (Pitocin In Ns 20 Units/1,000 Ml) 20 unit in 1,000 mls @ 999 mls/hr IV TITRATE BALTA; Protocol Sodium Chloride (Saline Flush) 10 ml FLUSH ASDIRECTED PRN PRN Reason: Keep Vein Open Discontinued Medications Ampicillin Sodium 2 gm/ Sodium (Chloride) 100 mls @ 200 mls/hr IV ONETIME ONE Stop: 12/06/17 21:13 Oxytocin/Sodium Chloride (Pitocin In Ns 20 Units/1,000 Ml) Confirm Administered Dose 20 unit in 1,000 mls @ as directed .ROUTE .[facility] ONE Stop: 12/06/17 21:01 - Exam General: Alert, Oriented HEENT: Pupils Equal, Pupils Reactive, EOMI, Mucous Membr. Moist/[place] Neck: Supple Lungs: Clear to Auscultation, Normal Respiratory Effort Cardiovascular: Regular Rate, Regular Rhythm GI/Abdominal Exam: Normal Bowel Sounds, Soft, Non-Tender, No Organomegaly, No Distention, No Abnormal Bruit, No Mass, Pelvis Stable (Female) Exam: Normal External Exam, Normal Speculum Exam, Normal Bimanual Exam, Enlarged Uterus, Vaginal Bleeding Back Exam: Normal Inspection, Full Range of Motion Extremities: Normal Inspection, Normal Range of Motion, Non-Tender, No Pedal Edema, Normal Capillary Refill Skin: Warm, Dry, Intact Wound/Incisions: Healing Well Neurological: No New Focal Deficit Psy/Mental Status: Alert, Normal Affect, Normal Mood - Problem List & Annotations (1) SNOMED Code(s): 90919960 Code(s): Z34.90 - ENCNTR FOR SUPRVSN OF NORMAL , UNSP, UNSP TRIMESTER Status: Acute Current Visit: Yes Qualifiers: Weeks of gestation: 38 weeks Qualified Code(s): Z3A.38 - 38 weeks gestation of (2) GBS carrier SNOMED Code(s): 7984835090474 Code(s): Z22.330 - CARRIER OF GROUP B STREPTOCOCCUS Status: Acute Current Visit: Yes (3) Normal vaginal delivery SNOMED Code(s): 25540486 Code(s): O80 - ENCOUNTER FOR FULL-TERM UNCOMPLICATED DELIVERY Status: Acute Current Visit: Yes (4) Precipitous delivery SNOMED Code(s): 807176430 Code(s): O62.3 - PRECIPITATE LABOR Status: Acute Current Visit: Yes (5) Hyperemesis SNOMED Code(s): 084908687 Code(s): R11.10 - VOMITING, UNSPECIFIED Status: Acute Current Visit: Yes - Problem List Review Problem List Initiated/Reviewed/Updated: Yes - My Orders Last 24 Hours: My Active Orders 12/06/17 20:41 OB Check [OM.PC] Click to Edit 12/06/17 20:42 DRUG SCREEN, URINE [URCHEM] Stat UA W/MICROSCOPIC [URIN] Routine 12/06/17 20:45 Sodium Chloride 0.9% [Normal Saline] 1,000 ml IV ASDIRECTED 12/06/17 20:50 Patient Status [ADT] Routine Notify Provider Vital Signs [RC] PRN 12/06/17 21:00 Oxytocin/Normal Saline [Pitocin in NS 20 Units/1,000 ML] 20 unit in 1,000 ml IV TITRATE 12/06/17 21:49 Ambulate [RC] PER UNIT ROUTINE Communication Order [RC] ASDIRECTED Heart Tones [RC] PER UNIT ROUTINE Notify Provider [RC] PRN Vital Signs [RC] PER UNIT ROUTINE CBC WITH AUTO DIFF [HEME] Routine Sodium Chloride 0.9% [Saline Flush] 10 ml FLUSH ASDIRECTED PRN DVT/VTE Prophylaxis Reflex [OM.PC] Routine Saline Lock Insert [OM.PC] Routine Resuscitation Status Routine 12/06/17 21:51 VTE/DVT Education [RC] Click to Edit - Assessment Assessment:: 12/06/2017 32 yo G5 now P4 @ 38 6/7 gestational weeks without complications Precipitous delivery History hyperemesis severe History of anxiety/depression Labs-A positive, GBS positive, RPR nonreactive, Hep B negative, HIV negative, Rubella Immune - Plan Plan:: 12/06/2017 32 yo came in in spontaneous labor and delivered precipitously see labor delivery note. SVE on admit /bulging bag Ramin regular FHTs category one History of hyperemesis GBS positive Plan- Monitor labor Monitor FHTS Plan and anticipate a vaginal delivery 12/06/2017 Routine Cares Encourage and support Plan discharge 24-48hrs CBC in am
[2017-12-06] MEDS ORDERED: Docusate Sodium 100 MG Cap PO PRN (22:13)
[2017-12-06] MEDS ORDERED: Hydrocortisone 2.5% Crm 30 GM Tube TOP PRN (22:13)
[2017-12-06] MEDS ORDERED: Ibuprofen 600 MG Tab PO PRN (22:13)
[2017-12-06] MEDS ORDERED: Witch Hazel Medicated Pads 100/Jar TOP PRN (22:13)
[2017-12-06] MEDS ORDERED: Lanolin 100% Cream 40 GM Tube TOP PRN (22:13)
[2017-12-06] MEDS ORDERED: Ibuprofen 200 MG Tab, 24 Tab Bulk Bottle PO PRN (22:13)
[2017-12-06] MEDS ORDERED: Acetaminophen/Codeine 300-30 MG Tab PO PRN (22:20)
[2017-12-07] MEDS ORDERED: Acetaminophen 325 MG Tab, 50 Tab Bulk Bottle PO PRN (02:37)
--- NOTE | 2017-12-07 08:22 | PCM.PNPP ---
- General Info Date of Service: 12/07/17 ( Day One) - Review of Systems General: Reports: No Symptoms HEENT: Reports: No Symptoms Pulmonary: Reports: No Symptoms Cardiovascular: Reports: No Symptoms Gastrointestinal: Reports: No Symptoms Genitourinary: Reports: No Symptoms Musculoskeletal: Reports: No Symptoms Skin: Reports: No Symptoms Neurological: Reports: No Symptoms Psychiatric: Reports: No Symptoms - General Info Date of Service: 12/07/17 - Patient Data Vital Signs - Most Recent: Last Vital Signs Temp 36.1 C 12/07/17 08:01 Pulse 80 12/07/17 08:01 Resp 18 12/07/17 08:01 BP 128/76 12/07/17 08:01 Pulse Ox 96 12/07/17 08:01 Weight - Most Recent: 95.708 kg I&O - Last 24 Hours: Intake & Output 12/06/17 12/07/17 12/07/17 22:59 06:59 14:59 Intake Total 3200 Balance 3200 Lab Results - Last 24 Hours: Laboratory Results - last 24 hr 12/06/17 12/06/17 12/06/17 Range/Units 20:42 20:42 20:52 WBC 13.8 H (4.5-11.0) K/uL RBC 4.85 (3.30-5.50) M/uL Hgb 10.6 L (12.0-15.0) g/dL Hct 33.5 L (36.0-48.0) % MCV 69 L (80-98) fL MCH 22 L (27-31) pg MCHC 32 (32-36) % Plt Count 343 (150-400) K/uL Neut % (Auto) 77 H (36-66) % Lymph % (Auto) 14 L (24-44) % [place]ully % (Auto) 8 H (2-6) % Eos % (Auto) 1 L (2-4) % Baso % (Auto) 0 (0-1) % Urine Color Yellow Urine Appearance Slightly cloudy Urine pH 7.0 (4.5-8.0) Ur Specific [place] 1.015 (1.008-1.030) Urine Protein Negative (NEGATIVE) mg/dL Urine Glucose (UA) Normal (NEGATIVE) mg/dL Urine Ketones Negative (NEGATIVE) mg/dL Urine Occult Blood Moderate (NEGATIVE) Urine Nitrite Negative (NEGATIVE) Urine Bilirubin Negative (NEGATIVE) Urine Urobilinogen Normal (NORMAL) mg/dL Ur Leukocyte Esterase Large (NEGATIVE) Urine RBC 0-5 (0-5) Urine WBC 10-20 H (0-5) Ur Epithelial Cells Many Amorphous Sediment Rare Urine Bacteria Not seen Urine Mucus Rare Urine Opiates Screen Presumptive positive H (NEGATIVE) Ur Oxycodone Screen Negative (NEGATIVE) Urine Methadone Screen Negative (NEGATIVE) Ur Propoxyphene Screen Negative (NEGATIVE) Ur Barbiturates Screen Negative (NEGATIVE) Ur Tricyclics Screen Negative (NEGATIVE) Ur Phencyclidine Scrn Negative (NEGATIVE) Ur Amphetamine Screen Negative (NEGATIVE) U Methamphetamines Scrn Presumptive positive H (NEGATIVE) Urine MDMA Screen Negative (NEGATIVE) U Benzodiazepines Scrn Negative (NEGATIVE) U Cocaine Metab Screen Negative (NEGATIVE) U Marijuana (THC) Screen Negative (NEGATIVE) 12/06/17 12/07/17 Range/Units 22:04 05:45 WBC 14.8 H 16.5 H (4.5-11.0) K/uL RBC 4.54 4.24 (3.30-5.50) M/uL Hgb 10.0 L 9.4 L (12.0-15.0) g/dL Hct 31.4 L 29.7 L (36.0-48.0) % MCV 69 L 70 L (80-98) fL MCH 22 L 22 L (27-31) pg MCHC 32 32 (32-36) % Plt Count 289 255 (150-400) K/uL Neut % (Auto) 82 H 79 H (36-66) % Lymph % (Auto) 11 L 13 L (24-44) % Sully % (Auto) 6 8 H (2-6) % Eos % (Auto) 1 L 1 L (2-4) % Baso % (Auto) 0 0 (0-1) % Urine Color Urine Appearance Urine pH (4.5-8.0) Ur Specific [place] (1.008-1.030) Urine Protein (NEGATIVE) mg/dL Urine Glucose (UA) (NEGATIVE) mg/dL Urine Ketones (NEGATIVE) mg/dL Urine Occult Blood (NEGATIVE) Urine Nitrite (NEGATIVE) Urine Bilirubin (NEGATIVE) Urine Urobilinogen (NORMAL) mg/dL Ur Leukocyte Esterase (NEGATIVE) Urine RBC (0-5) Urine WBC (0-5) Ur Epithelial Cells Amorphous Sediment Urine Bacteria Urine Mucus Urine Opiates Screen (NEGATIVE) Ur Oxycodone Screen (NEGATIVE) Urine Methadone Screen (NEGATIVE) Ur Propoxyphene Screen (NEGATIVE) Ur Barbiturates Screen (NEGATIVE) Ur Tricyclics Screen (NEGATIVE) Ur Phencyclidine Scrn (NEGATIVE) Ur Amphetamine Screen (NEGATIVE) U Methamphetamines Scrn (NEGATIVE) Urine MDMA Screen (NEGATIVE) U Benzodiazepines Scrn (NEGATIVE) U Cocaine Metab Screen (NEGATIVE) U Marijuana (THC) Screen (NEGATIVE) Med Orders - Current: Current Medications Acetaminophen (Tylenol Bulk Bottle) 650 mg PO Q4H PRN PRN Reason: Pain Last Admin: 12/07/17 03:06 Dose: 650 mg Acetaminophen/Codeine Phosphate (Tylenol With Codeine No.3 300mg/30mg) 1 tab PO Q4H PRN PRN Reason: Pain Docusate Sodium (Colace) 100 mg PO BID PRN PRN Reason: Constipation Emollient Ointment (Lansinoh Hpa) 1 gm TOP ASDIRECTED PRN PRN Reason: Sore Nipples Hydrocortisone (Proctozone-Hc 2.5% Crm) 1 gm TOP ASDIRECTED PRN PRN Reason: Itching Sodium Chloride (Normal Saline) 1,000 mls @ 125 mls/hr IV ASDIRECTED BALTA Last Admin: 12/06/17 20:53 Dose: 125 mls/hr Oxytocin/Sodium Chloride (Pitocin In Ns 20 Units/1,000 Ml) 20 unit in 1,000 mls @ 999 mls/hr IV TITRATE BALTA; Protocol Ibuprofen (Motrin Bulk Bottle) 600 mg PO Q6H PRN PRN Reason: Pain Last Admin: 12/06/17 23:42 Dose: 600 mg Sodium Chloride (Saline Flush) 10 ml FLUSH ASDIRECTED PRN PRN Reason: Keep Vein Open Witch Faviola (Tucks) 1 pad TOP ASDIRECTED PRN PRN Reason: Hemorrhoids Discontinued Medications Ampicillin Sodium 2 gm/ Sodium (Chloride) 100 mls @ 200 mls/hr IV ONETIME ONE Stop: 12/06/17 21:13 Last Admin: 12/06/17 20:57 Dose: 200 mls/hr Oxytocin/Sodium Chloride (Pitocin In Ns 20 Units/1,000 Ml) Confirm Administered Dose 20 unit in 1,000 mls @ as directed .ROUTE .STK-MED ONE Stop: 12/06/17 21:01 Last Admin: 12/06/17 23:42 Dose: Not Given Oxytocin/Sodium Chloride (Pitocin In Ns 20 Units/1,000 Ml) 20 unit in 1,000 mls @ 2,997 mls/hr IV ONETIME ONE; Protocol Stop: 12/06/17 22:37 Last Admin: 12/06/17 21:05 Dose: 999 munits/min, 2,997 mls/hr Ibuprofen (Motrin) 600 mg PO Q6H PRN PRN Reason: mild pain or fever - Interaction Disposition, : [place] at Bedside Infant Interaction: Holding Feeding: Breastfed ; Nursed Well Support Person: - Recovery Exam Fundal Tone: Firm Fundal Level: At Umbilicus Fundal Placement: Right Lochia Amount: Small Lochia Color: Rubra/Red Perineum Description: Intact, Minimal Bruising/Swelling Episiotomy/Laceration: None Bladder Status: Voiding - Exam General: Alert, Oriented HEENT: Pupils Equal Neck: Supple Lungs: Clear to Auscultation, Normal Respiratory Effort Cardiovascular: Regular Rate, Regular Rhythm GI/Abdominal Exam: Normal Bowel Sounds, Soft, Non-Tender, No Organomegaly, No Distention, No Abnormal Bruit, No Mass, Pelvis Stable Extremities: Normal Inspection, Normal Range of Motion, Non-Tender, No Pedal Edema, Normal Capillary Refill Skin: Warm, Dry, Intact Wound/Incisions: Healing Well Neurological: No New Focal Deficit Psy/Mental Status: Alert, Normal Affect, Normal Mood - Problem List & Annotations (1) SNOMED Code(s): 49030787 Code(s): Z34.90 - ENCNTR FOR SUPRVSN OF NORMAL , UNSP, UNSP TRIMESTER Status: Acute Current Visit: Yes Qualifiers: Weeks of gestation: 38 weeks Qualified Code(s): Z3A.38 - 38 weeks gestation of (2) GBS carrier SNOMED Code(s): 4315735607947 Code(s): Z22.330 - CARRIER OF GROUP B STREPTOCOCCUS Status: Acute Current Visit: Yes (3) Normal vaginal delivery SNOMED Code(s): 26492431 Code(s): O80 - ENCOUNTER FOR FULL-TERM UNCOMPLICATED DELIVERY Status: Acute Current Visit: Yes (4) Precipitous delivery SNOMED Code(s): 450318479 Code(s): O62.3 - PRECIPITATE LABOR Status: Acute Current Visit: Yes (5) Hyperemesis SNOMED Code(s): 475227117 Code(s): R11.10 - VOMITING, UNSPECIFIED Status: Acute Current Visit: Yes - Problem List Review Problem List Initiated/Reviewed/Updated: Yes - My Orders Last 24 Hours: My Active Orders 12/06/17 20:41 OB Check [OM.PC] Click to Edit 12/06/17 20:42 DRUG SCREEN, URINE [URCHEM] Stat UA W/MICROSCOPIC [URIN] Routine 12/06/17 20:45 Sodium Chloride 0.9% [Normal Saline] 1,000 ml IV ASDIRECTED 12/06/17 20:50 Patient Status [ADT] Routine Notify Provider Vital Signs [RC] PRN 12/06/17 21:00 Oxytocin/Normal Saline [Pitocin in NS 20 Units/1,000 ML] 20 unit in 1,000 ml IV TITRATE 12/06/17 21:49 Ambulate [RC] PER UNIT ROUTINE Sodium Chloride 0.9% [Saline Flush] 10 ml FLUSH ASDIRECTED PRN DVT/VTE Prophylaxis Reflex [OM.PC] Routine Saline Lock Insert [OM.PC] Routine Resuscitation Status Routine 12/06/17 21:51 VTE/DVT Education [RC] Click to Edit 12/06/17 22:13 May Shower [RC] ASDIRECTED Up ad Gaby [RC] ASDIRECTED Docusate Sodium [Colace] 100 mg PO BID PRN Hydrocortisone [Proctozone-HC 2.5% Crm] 1 gm TOP ASDIRECTED PRN Ibuprofen [Motrin Bulk Bottle] 600 mg PO Q6H PRN Lanolin [Lansinoh HPA] 1 gm TOP ASDIRECTED PRN Witch Faviola [Tucks] 1 pad TOP ASDIRECTED PRN Assess Lochia [WOMSER] Per Unit Routine Assess Uterine Involution [WOMSER] Per Unit Routine 12/06/17 22:14 Patient Status [ADT] Routine Vital Signs [RC] Q4H Perineal Care [OM.PC] Per Unit Routine 12/06/17 22:20 Acetaminophen/Codeine [Tylenol with Codeine No.3 300MG/30MG] 1 tab PO Q4H PRN 12/06/17 Breakfast Regular Diet [DIET] 12/07/17 02:37 Acetaminophen [Tylenol Bulk Bottle] 650 mg PO Q4H PRN 12/07/17 08:13 PICC Discontinue [Central Line PICC Discontinue] [OM.PC] Routine - Assessment Assessment:: 12/06/2017 32 yo G5 now P4 @ 38 6/7 gestational weeks without complications Precipitous delivery History hyperemesis severe History of anxiety/depression Labs-A positive, GBS positive, RPR nonreactive, Hep B negative, HIV negative, Rubella Immune 12/07/2017 Day One Healthy Fundus firm and bleeding decreased Voiding and passing gas Pain controlled with oral pain medication Drug screen positive-history of multiple medications from hyperemesis and recent UTI, will do confirmatory PICC line in Hemorrhoids Anxiety/Depression History of hyperemesis severe with this - Plan Plan:: 12/06/2017 32 yo came in in spontaneous labor and delivered precipitously see labor delivery note. NAYAN on admit /bulging bag Ramin regular FHTs category one History of hyperemesis GBS positive Plan- Monitor labor Monitor FHTS Plan and anticipate a vaginal delivery 12/06/2017 Routine Cares Encourage and support Plan discharge 24-48hrs CBC in am 12/07/2017 Continue Routine Cares Continue to support and encourage D/C Picc line today Plan discharge tomorrow
--- NOTE | 2017-12-08 09:05 | PCM.PNPP ---
- General Info Date of Service: 12/08/17 (PPD 2 D/C) Admission Dx/Problem (Free Text): Patient Status Order with Admit Dx/Problem 12/06/17 20:50 Patient Status [ADT] Routine Admission Diagnosis/Problem Admission Diagnosis/Problem Functional Status: Reports: Pain Controlled - Review of Systems General: Reports: No Symptoms HEENT: Reports: No Symptoms Pulmonary: Reports: No Symptoms Cardiovascular: Reports: No Symptoms Gastrointestinal: Reports: No Symptoms Genitourinary: Reports: No Symptoms Musculoskeletal: Reports: No Symptoms Skin: Reports: No Symptoms Neurological: Reports: No Symptoms Psychiatric: Reports: No Symptoms - General Info Date of Service: 12/08/17 - Patient Data Vital Signs - Most Recent: Last Vital Signs Temp 97.5 F 12/08/17 07:24 Pulse 84 12/08/17 07:24 Resp 18 12/08/17 07:24 BP 117/71 12/08/17 07:24 Pulse Ox 97 12/08/17 07:24 Weight - Most Recent: 211 lb I&O - Last 24 Hours: Intake & Output 12/07/17 12/08/17 12/08/17 22:59 06:59 14:59 Intake Total 600 Balance 600 Med Orders - Current: Current Medications Acetaminophen (Tylenol Bulk Bottle) 650 mg PO Q4H PRN PRN Reason: Pain Last Admin: 12/07/17 03:06 Dose: 650 mg Acetaminophen/Codeine Phosphate (Tylenol With Codeine No.3 300mg/30mg) 1 tab PO Q4H PRN PRN Reason: Pain Docusate Sodium (Colace) 100 mg PO BID PRN PRN Reason: Constipation Emollient Ointment (Lansinoh Hpa) 1 gm TOP ASDIRECTED PRN PRN Reason: Sore Nipples Hydrocortisone (Proctozone-Hc 2.5% Crm) 1 gm TOP ASDIRECTED PRN PRN Reason: Itching Sodium Chloride (Normal Saline) 1,000 mls @ 125 mls/hr IV ASDIRECTED BALTA Last Admin: 12/06/17 20:53 Dose: 125 mls/hr Oxytocin/Sodium Chloride (Pitocin In Ns 20 Units/1,000 Ml) 20 unit in 1,000 mls @ 999 mls/hr IV TITRATE BALTA; Protocol Ibuprofen (Motrin Bulk Bottle) 600 mg PO Q6H PRN PRN Reason: Pain Last Admin: 12/06/17 23:42 Dose: 600 mg Sodium Chloride (Saline Flush) 10 ml FLUSH ASDIRECTED PRN PRN Reason: Keep Vein Open Witch Faviola (Tucks) 1 pad TOP ASDIRECTED PRN PRN Reason: Hemorrhoids Discontinued Medications Ampicillin Sodium 2 gm/ Sodium (Chloride) 100 mls @ 200 mls/hr IV ONETIME ONE Stop: 12/06/17 21:13 Last Admin: 12/06/17 20:57 Dose: 200 mls/hr Oxytocin/Sodium Chloride (Pitocin In Ns 20 Units/1,000 Ml) Confirm Administered Dose 20 unit in 1,000 mls @ as directed .ROUTE .STK-MED ONE Stop: 12/06/17 21:01 Last Admin: 12/06/17 23:42 Dose: Not Given Oxytocin/Sodium Chloride (Pitocin In Ns 20 Units/1,000 Ml) 20 unit in 1,000 mls @ 2,997 mls/hr IV ONETIME ONE; Protocol Stop: 12/06/17 22:37 Last Admin: 12/06/17 21:05 Dose: 999 munits/min, 2,997 mls/hr Ibuprofen (Motrin) 600 mg PO Q6H PRN PRN Reason: mild pain or fever - Infant Interaction Disposition, : [place] at Bedside Interaction: Holding Feeding: Breastfed ; Nursed Well Support Person: - Recovery Exam Fundal Tone: Firm Fundal Level: 2 Fingerbreadths Below Umbilicus Fundal Placement: Right Lochia Amount: Small Lochia Color: Rubra/Red Perineum Description: Intact, Minimal Bruising/Swelling Episiotomy/Laceration: None Bladder Status: Voiding Urinary Elimination: Voided - Exam General: Alert, Oriented HEENT: Pupils Equal Neck: Supple Lungs: Normal Respiratory Effort Cardiovascular: Regular Rate, Regular Rhythm GI/Abdominal Exam: Non-Tender Extremities: No Pedal Edema, Normal Capillary Refill Skin: Warm Wound/Incisions: Healing Well Neurological: No New Focal Deficit Psy/Mental Status: Alert, Normal Affect, Normal Mood - Problem List & Annotations (1) Hemorrhoid SNOMED Code(s): 93847401 Code(s): K64.9 - UNSPECIFIED HEMORRHOIDS Status: Acute Current Visit: Yes (2) SNOMED Code(s): 97737417 Code(s): Z34.90 - ENCNTR FOR SUPRVSN OF NORMAL , UNSP, UNSP TRIMESTER Status: Acute Current Visit: Yes Qualifiers: Weeks of gestation: 38 weeks Qualified Code(s): Z3A.38 - 38 weeks gestation of (3) GBS carrier SNOMED Code(s): 3754488644680 Code(s): Z22.330 - CARRIER OF GROUP B STREPTOCOCCUS Status: Acute Current Visit: Yes (4) Normal vaginal delivery SNOMED Code(s): 25096883 Code(s): O80 - ENCOUNTER FOR FULL-TERM UNCOMPLICATED DELIVERY Status: Acute Current Visit: Yes (5) Precipitous delivery SNOMED Code(s): 591230611 Code(s): O62.3 - PRECIPITATE LABOR Status: Acute Current Visit: Yes - Problem List Review Problem List Initiated/Reviewed/Updated: Yes - Assessment Assessment:: 12/06/2017 32 yo G5 now P4 @ 38 6/7 gestational weeks without complications Precipitous delivery History hyperemesis severe History of anxiety/depression Labs-A positive, GBS positive, RPR nonreactive, Hep B negative, HIV negative, Rubella Immune 12/07/2017 Day One Healthy Fundus firm and bleeding decreased Voiding and passing gas Pain controlled with oral pain medication Drug screen positive-history of multiple medications from hyperemesis and recent UTI, will do confirmatory PICC line in Hemorrhoids Anxiety/Depression History of hyperemesis severe with this 12/08/17 without complications , well No S&S of depression or anxiety NO fever VS stable Bleeding light, some cramps GBS positive, No antibiotics - Plan Plan:: 12/06/2017 32 yo came in in spontaneous labor and delivered precipitously see labor delivery note. SVE on admit /bulging bag Ramin regular FHTs category one History of hyperemesis GBS positive Plan- Monitor labor Monitor FHTS Plan and anticipate a vaginal delivery 12/06/2017 Routine Cares Encourage and support Plan discharge 24-48hrs CBC in am 12/07/2017 Continue Routine Cares Continue to support and encourage D/C Picc line today Plan discharge tomorrow 12/08/17 Home later today Needs a six week post visit with Cachorro Mercer CNM
[2017-12-08 14:51] VITALS: BP 118/74
== END 2017-12-08 17:35 | disposition home or self-care (01) | DRG 560 ==
LOC: JP.OBCHECK 20:20 → JP.OB 20:40 → OBSVTOIN 21:03 → JP.MS 23:12
PROVIDERS: ADMIT Advanced Practice Midwife; ATTEND Advanced Practice Midwife
PROC: 10E0XZZ Delivery of Products of Conception, External Approach (ICD-10-PCS; principal; 2017-12-06)
DX: O69.1XX0 Labor and delivery complicated by cord around neck, with compression, not applicable or unspecified (principal); O99.824 Streptococcus B carrier state complicating childbirth; O62.3 Precipitate labor; Z3A.38 38 weeks gestation of pregnancy; Z37.0 Single live birth; O23.43 Unspecified infection of urinary tract in pregnancy, third trimester; O21.1 Hyperemesis gravidarum with metabolic disturbance; O99.324 Drug use complicating childbirth; F11.90 Opioid use, unspecified, uncomplicated; F15.90 Other stimulant use, unspecified, uncomplicated; O99.344 Other mental disorders complicating childbirth; F32.9 Major depressive disorder, single episode, unspecified; F41.9 Anxiety disorder, unspecified; Z88.1 Allergy status to other antibiotic agents; Z91.041 Radiographic dye allergy status; Z88.5 Allergy status to narcotic agent; Z88.8 Allergy status to other drugs, medicaments and biological substances; Z91.048 Other nonmedicinal substance allergy status
CPT/HCPCS: 36415; 59409; 80305; 81001; 85025; 99211; A9270-GY; J0290; J2590; J7030

== ENCOUNTER 2019-07-28 06:01 | Day surgery (SDC) | payer BC ==
[2019-07-28] MEDS ORDERED: Dextrose 5%-Lactated Ringers 1,000 ML IV SCH (07:15)
[2019-07-28] MEDS ORDERED: Ondansetron 4 MG/2 ML SDV ONE (07:34)
[2019-07-28] MEDS ORDERED: Propofol 200 MG/20 ML SDV ONE (07:35)
[2019-07-28] MEDS ORDERED: fentaNYL 100 MCG/2 ML SDV ONE (07:35)
[2019-07-28] MEDS ORDERED: Midazolam 1 MG/ML 2 ML SDV ONE (07:35)
[2019-07-28] MEDS ORDERED: Glycopyrrolate 0.2 MG/ML 2 ML SDV IVPUSH ONE (07:45)
[2019-07-28 09:59] VITALS: BP 107/73; PULSE 76
--- NOTE | 2019-08-04 09:01 | OR ---
DATE OF PROCEDURE: 07/28/2019 SURGEON: Nguyễn Peres MD PREOPERATIVE DIAGNOSIS: Upper abdominal pain. POSTOPERATIVE DIAGNOSIS: Recurrent biliary type pain with normal upper GI endoscopy. OPERATIVE PROCEDURE: Esophagogastroduodenoscopy with antral biopsies for CLOtest. ANESTHESIA: IV sedation. 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 Mark Anthony Frausto 6 years ago in the [facility]. Up until recently, the patient had done well. She is now presenting with some recurrent biliary type pain. She remembers this being essentially the same as what she had prior to the sphincteroplasty. Plan is to proceed with additional upper GI endoscopy to make sure we are not dealing with something more simple such as gastritis or ulcer disease. Potential risks including bleeding and perforation were discussed, and the patient wishes to proceed. DETAILS OF PROCEDURE: The patient was taken to the operating room and placed in a left lateral decubitus position. IV sedation was administered, after which the upper GI endoscope was passed orally through the length of the esophagus and into the stomach with retroflexion view of the fundus, and thereafter through the pyloric channel, and into the junction of the third and fourth portions of the duodenum. Findings included a normal hypopharynx, larynx, upper esophageal sphincter, esophageal body. At the EG junction, no significant hiatal hernia or inflammation was noted. Within the stomach, there was some minimal redness in the antrum, but no true gastritis. The visualized portions of the pyloric channel and duodenum were unremarkable. The ampulla of Vater could vaguely be seen with forward viewing endoscope, but otherwise was unremarkable from that vantage point. Scope was then withdrawn. Biopsies were obtained from the antrum to establish the patient's H pylori status. Minimal bleeding from biopsy site was seen, and the procedure was then concluded. At this point, the next step should likely be the patient contacting Dr. Frausto in the GI Department at [facility], to evaluate the possibility of scarring or other problems redeveloping in the area of sphincter of Oddi. Nguyễn Peres MD /[id number]
== END 2019-07-28 10:20 | disposition home or self-care (01) ==
LOC: JP.SDS 06:01
PROVIDERS: ATTEND Surgery
DX: R10.10 Upper abdominal pain, unspecified (principal); E66.9 Obesity, unspecified; Z90.49 Acquired absence of other specified parts of digestive tract; Z68.36 Body mass index [BMI] 36.0-36.9, adult
CPT/HCPCS: 81025; 87081; J2250; J2405; J2704; J3010; J3490; J7121

== ENCOUNTER 2024-09-05 21:41 | Emergency (ER) | payer BC ==
[2024-09-05 21:50] VITALS: BP 134/80; PULSE 122
[2024-09-05] MEDS: Ketorolac 30 MG/ML SDV IVPUSH ONE (22:20)
[2024-09-05] MEDS: Sodium Chloride 0.9% 1,000 ML IV ONE (22:20)
[2024-09-05] MEDS: Ondansetron 4 MG/2 ML SDV IVPUSH ONE (22:20)
[2024-09-05] MEDS: diphenhydrAMINE 50 MG/ML SDV IVPUSH ONE (22:20)
[2024-09-05] MEDS: Dexamethasone 4 MG/ML SDV IVPUSH ONE (23:24)
== END 2024-09-05 23:56 | disposition home or self-care (01) ==
LOC: JP.ED 21:41
DX: G43.909 Migraine, unspecified, not intractable, without status migrainosus (principal); K52.9 Noninfective gastroenteritis and colitis, unspecified; Z91.048 Other nonmedicinal substance allergy status; Z91.041 Radiographic dye allergy status; Z88.5 Allergy status to narcotic agent; Z88.8 Allergy status to other drugs, medicaments and biological substances; Z88.1 Allergy status to other antibiotic agents; Z91.013 Allergy to seafood; Z79.899 Other long term (current) drug therapy
CPT/HCPCS: 96361; 96374; 96375; 99283; 99283-25; J1100; J1200; J1885; J2405; J7030

== ENCOUNTER 2025-04-27 12:10 | Emergency (ER) | payer BC ==
[2025-04-27 13:15] LABS: BASOPHILS ABSOLUTE AUTO 0.03 K/uL (0.00-0.10); BASOPHILS PERCENT AUTO 0.3 % (0.1-1.3); EOSINOPHILS ABSOLUTE AUTO 0.10 K/uL (0.00-0.40); EOSINOPHILS PERCENT AUTO 1.1 % (0.0-5.4); IMMATURE GRAN ABSOLUTE AUTO 0.03 K/uL (0.00-0.23); IMMATURE GRAN PERCENT AUTO 0.3 % (0.0-0.7); LYMPHOCYTES ABSOLUTE AUTO 1.59 K/uL (0.8-3.3); LYMPHOCYTES PERCENT AUTO 18.2 % (11.4-47.7); MONOCYTES ABSOLUTE AUTO 0.51 K/uL (0.20-0.90); MONOCYTES PERCENT AUTO 5.8 % (3.3-12.6); NEUTROPHILS ABSOLUTE AUTO 6.48 K/uL (1.0-7.6); NEUTROPHILS PERCENT AUTO 74.3 % (40.0-78.1); PLATELET COUNT,PLT 269 K/uL (130-375); RED BLOOD CELL COUNT 4.83 M/uL (3.77-5.24); WHITE BLOOD CELL COUNT,WBC 8.7 K/uL (3.2-11.0)
[2025-04-27] MEDS: Ketorolac 30 MG/ML SDV IM ONE (13:17)
[2025-04-27 13:30] LABS: APPEARANCE,URINE CLEAR (CLEAR); GLUCOSE,URINE NEGATIVE (NEGATIVE); OCCULT BLOOD,URINE NEGATIVE (NEGATIVE)
[2025-04-27 13:37] LABS: A/G RATIO 1.0 (1.2-2.2); ALANINE AMINOTRANSFERASE,ALT 27 U/L (12-78); ASPARTATE AMNIOTRANSFERASE,AST 18 U/L (15-37); BILIRUBIN TOTAL 0.3 mg/dL (0.2-1.0); BLOOD UREA NITROGEN,BUN 14 mg/dL (7-18); CARBON DIOXIDE,CO2 27 mmol/L (21-32); CHLORIDE,CL 102 mmol/L (100-108); CREATININE 0.8 mg/dL (0.6-1.0); EST CRCL DRUG DOSING (CG) 80.72 mL/min; ESTIMATED GFR 95 mL/min (>60); GLUCOSE RANDOM 87 mg/dL (74-106); POTASSIUM,K 3.5 mmol/L (3.6-5.2); PROTEIN TOTAL,TP 8.2 g/dL (6.4-8.2); SODIUM,NA 139 mmol/L (140-148)
[2025-04-27 14:38] VITALS: BP 119/80; PULSE 70
== END 2025-04-27 14:38 | disposition home or self-care (01) ==
LOC: JP.ED 12:10
DX: R10.20 Pelvic and perineal pain unspecified side (principal); E66.9 Obesity, unspecified; Z91.048 Other nonmedicinal substance allergy status; Z91.013 Allergy to seafood; Z91.041 Radiographic dye allergy status; Z91.09 Other allergy status, other than to drugs and biological substances; Z88.8 Allergy status to other drugs, medicaments and biological substances; Z79.899 Other long term (current) drug therapy; Z90.49 Acquired absence of other specified parts of digestive tract; Z90.710 Acquired absence of both cervix and uterus
CPT/HCPCS: 36415; 74176; 80053; 81003; 85025; 86140; 96372; 99284; J1885